=== PATIENT | male | born 1960 | race Asian ===

== ENCOUNTER 2022-01-24 08:30 | Emergency (ER) | payer BC ==
[~2022-01-24] VITALS: Ht 157.5 cm; Wt 62.7 kg
[2022-01-24] MEDS ORDERED: TETanus/Pertussis (Acell)/Diphther VAC/PF (Tdap-Adult) 0.5ml syringe IMVAC ONE (08:40)
[2022-01-24] MEDS ORDERED: LIDOcaine 1% W/epiNEPHrine 1:100,000 20ml vial SQ ONE ×2 (08:40→09:35)
[2022-01-24] MEDS ORDERED: CEPH-585 PO (10:21)
[2022-01-24 10:52] VITALS: BP 146/84
== END 2022-01-24 10:53 | disposition home or self-care (01) ==
LOC: ER 08:31
DX: S61.412A Laceration without foreign body of left hand, initial encounter (principal); I10 Essential (primary) hypertension; Z79.899 Other long term (current) drug therapy; W26.8XXA Contact with other sharp object(s), not elsewhere classified, initial encounter; Y93.89 Activity, other specified; Y92.89 Other specified places as the place of occurrence of the external cause; Y99.8 Other external cause status
CPT/HCPCS: 12002; 90471; 90715; 99284; J7030; A6258

== ENCOUNTER 2025-05-24 11:16 | Outpatient (CLI) | payer MEDICAID ==
--- NOTE | 2025-05-24 12:35 | RADIOLOGY REPORT ---
CLINICAL INDICATION: LEFT WRIST/ELBOW PAIN TECHNIQUE: 2 radiographic views of the left wrist were obtained. Comparison: None FINDINGS/IMPRESSION: There is no evidence of acute fracture or dislocation. The visualized joint space is well maintained. The alignment is anatomical. There is no radiopaque foreign body.
--- NOTE | 2025-05-24 12:36 | RADIOLOGY REPORT ---
CLINICAL INDICATION: LEFT WRIST/ELBOW PAIN TECHNIQUE: 3 radiographic views of the left elbow were obtained. Comparison: DI WRIST,LIMITED (AP/LAT) on DOS: 05/24/25 FINDINGS/IMPRESSION: There is no evidence of acute fracture or dislocation. The visualized joint space is well maintained. The alignment is anatomical. There is no radiopaque foreign body.
== END 2025-05-24 23:59 | disposition home or self-care (01) ==
LOC: RAD 11:16
PROVIDERS: ATTEND Internal Medicine
DX: M25.522 Pain in left elbow (principal); M25.532 Pain in left wrist
CPT/HCPCS: 73080; 73100